=== PATIENT | male | born 1960 ===

== ENCOUNTER 2018-07-13 12:58 | Emergency (ER) | payer MEDICAID ==
[2018-07-13 13:13] VITALS: RESP 18
[2018-07-13] MEDS ORDERED: Bacitracin 500 Units/gm Oint Foilpak UD ONE (13:46)
--- NOTE | 2018-07-13 13:46 | C.PDOC ---
History Of Present Illness 58 y/o male pt s/p lung procedure laparoscopically presents to the ER c/o tenderness and irritation to the left lateral rib at [facility] in the past month. Drains and/or tubes were removed on May 29. Pt reports he is unable to care for post-op wounds himself because he lives alone and is unable to reach the surgical site. Pt denies chest pain, fever and SOB. Time Seen by Provider: 07/13/18 13:35 Chief Complaint (Nursing): Medical Clearance History Per: Patient History/Exam Limitations: no limitations Onset/Duration Of Symptoms: Other (months ) Current Symptoms Are (Timing): Still Present Past Medical History Reviewed: Historical Data, Nursing Documentation, Vital Signs Vital Signs: Last Vital Signs Temp 97.7 F 07/13/18 13:10 Pulse 106 H 07/13/18 13:10 Resp 18 07/13/18 13:10 BP 131/86 07/13/18 13:10 Pulse Ox 99 07/13/18 13:10 - Medical History PMH: Diabetes, Hypercholesterolemia Family History: States: Unknown Family Hx - Social History Hx Tobacco Use: No Hx Alcohol Use: No Hx Substance Use: No - Immunization History Hx Tetanus Toxoid Vaccination: No Hx Influenza Vaccination: Yes Hx Pneumococcal Vaccination: No Review Of Systems Except As Marked, All Systems Reviewed And Found Negative. Constitutional: Positive for: Other (tenderness and irritation to the left lateral rib ). Negative for: Fever Cardiovascular: Negative for: Chest Pain Respiratory: Negative for: Shortness of Breath Physical Exam - Physical Exam Appears: Non-toxic, No Acute Distress, Other (eating and drinking well ) Skin: Warm, Dry, No Rash Head: Normacephalic Eye(s): bilateral: Normal Inspection Oral Mucosa: Moist Chest: Symmetrical, No Tenderness, Other (7 surgical wound on left lateral chest; dry; no surrounding erythema; no discharge; Distal left lower rib paresthesia) Cardiovascular: Rhythm Regular Respiratory: Normal Breath Sounds Gastrointestinal/Abdominal: Soft, No Tenderness Neurological/Psych: Oriented x3, Normal Speech, Normal Cognition ED Course And Treatment O2 Sat by Pulse Oximetry: 99 (RA) Pulse Ox Interpretation: Normal Medical Decision Making Medical Decision Makin: [facility] on-call surgeon Dr. Valenzuela was contacted. 1438: wounds were cleaned by nurse 1720: Dr. Valenzuela called back and reports he saw pt x3 days ago at his office and his wounds looked good. Dr. Valenzuela reports to let pt know to return when needed and told to call his office at [phone] for an appointment. L chest wall wounds #7 related to L chest/lung surgery for ? cyst removal @ [facility] earlier this year. Tubes pulled and wound care left to pt who lives alone and cannot reach them to clean/bandage Unable to f/u @ [facility] for ? reasons. Wounds cleaned and dressed and instructed to f/u with the Thoracic Surgeons @ [facility] in 2-3 days for wound care revision + L distal lower rib parasthesias may be transient or permanent post op sequella Requires following. no s/s of active infection now. 1500: no call back from [facility] Thoracic Surg will call pt with f/u info later today Disposition Doctor Will See Patient In The: Office Counseled Patient/Family Regarding: Studies Performed, Diagnosis - Disposition Referrals: [facility] [Outside] [place] [facility] [Outside] [place] [facility] [Outside] [facility] [Outside] [place] [facility] [Outside] Disposition: HOME/ ROUTINE Disposition Time: 13:45 Condition: GOOD Additional Instructions: Mantiene las heridas cubiertos y limpios Llava con jabon y agua diario Inguento de Bacitracin encima diario Sigue con [facility] en [facility] en 2-3 [place] para hacer willard con los cirjuanos o' con la [facility] si tiene problemas en [facility]. Instructions: Surgical Wound (DC) Forms: [place] Print Language: [place] - Clinical Impression Clinical Impression: Encounter for wound care - Scribe Statement The provider has reviewed the documentation as recorded by the David Bang Do Provider Attestation: All medical record entries made by the Scribe were at my direction and personally dictated by me. I have reviewed the chart and agree that the record accurately reflects my personal performance of the history, physical exam, medical decision making, and the department course for this patient. I have also personally directed, reviewed, and agree with the discharge instructions and disposition.
[2018-07-13] MEDS ORDERED: Bacitracin Ointment 30 GM TUBE TOP ONE (13:50)
[2018-07-13 15:26] VITALS: BP 132/80; PULSE 97; TEMP 98
[2018-07-13 17:24] VITALS: O2SAT 99
== END 2018-07-13 15:25 | disposition home or self-care (01) ==
LOC: C.ER 12:58
DX: Z51.89 Encounter for other specified aftercare (principal); E11.9 Type 2 diabetes mellitus without complications; E78.00 Pure hypercholesterolemia, unspecified